=== PATIENT | female | born 1995 | race Caucasian/White ===

== ENCOUNTER 2018-05-21 10:06 | Emergency (ER) | payer BC, OTHER ==
--- NOTE | 2018-05-21 10:15 | EDM.PDOC ---
ED HPI GENERAL MEDICAL PROBLEM - General Chief Complaint: Skin Complaint Stated Complaint: SKIN COND. Time Seen by Provider: 05/21/18 10:08 Source of Information: Reports: Patient History Limitations: Reports: No Limitations - History of Present Illness INITIAL COMMENTS - FREE TEXT/NARRATIVE: HISTORY AND PHYSICAL: History of present illness: Patient is a 23-year-old female who presents to the emergency room with complaints of eczema flare up. She states she has had eczema since she was a young child and usually takes oral and/or topical steroids throughout her young adult life. She states she moved to [place] approximately 4 months ago after delivering her baby. She since has stopped using the topical steroids as she is concerned this was contraindicated with breast-feeding and physically touching the child. She has not seen a manager administration for further refills. She recently did see an Housing Development Specialist and [facility] for further investigation. Reports they were unable to pinpoint any particular allergen that was contributing to her eczema. She is here today requesting oral and/or topical steroids to help alleviate the discomfort. She has been using topical emollient creams without any relief. Review of systems: As per history of present illness and below otherwise all systems reviewed and negative. Past medical history: As per history of present illness and as reviewed below otherwise noncontributory. Surgical history: As per history of present illness and as reviewed below otherwise noncontributory. Social history: See social history for further information Family history: As per history of present illness and as reviewed below otherwise noncontributory. Physical exam: General: Well-developed and well-nourished 23-year-old female. Alert and oriented. Nontoxic appearing and in no acute distress. HEENT: Atraumatic, normocephalic, pupils equal and reactive bilaterally, negative for conjunctival pallor or scleral icterus, mucous membranes moist, TMs normal bilaterally, throat clear, neck supple, nontender, trachea midline. No drooling or trismus noted. No meningeal signs. No hot potato voice noted. Lungs: Clear to auscultation, breath sounds equal bilaterally, chest nontender. Heart: S1S2, regular rate and rhythm without overt murmur Abdomen: Soft, nondistended, nontender. Negative for masses or hepatosplenomegaly. Negative for costovertebral tenderness. Pelvis: Stable nontender. Genitourinary: Deferred. Rectal: Deferred. Skin: Patient does have eczema which appears sporadically throughout the body. Skin is intact, warm, dry. No lesions noted. Extremities: Atraumatic, negative for cords or calf pain. Neurovascular unremarkable. Neuro: Awake, alert, oriented. Cranial nerves II through XII unremarkable. Cerebellum unremarkable. Motor and sensory unremarkable throughout. Exam nonfocal. Notes: Patient has had an official diagnosis of eczema through her manager administration. States that there is nothing new with today's skin appearance, other than she can tell she hasn't been able to use the topical steroids. Patient does appear slightly uncomfortable as she is itching at the eczema on her arms. She states she is frustrated as she cannot find relief with the topical emollient cream. Although the skin does appear to have a large amount of eczema and does not appear toxic or infectious. We discussed the need for appropriate follow-up with a primary care provider since she is now living here and [place] along with specialty care such as dermatology. I did give her phone numbers for both services. Patient and her are malcontent as a request that she be admitted to have further management of her discomfort. As she has not used any topical or oral steroids, I inform them this needs to be in a stepwise fashion and attempt this first prior to going to more severe measures such as admission. I will give her some Westcort topical cream along with Solu-Medrol/Toradol IM while here. Supportive care measures were reviewed and discussed. Voices understanding and is agreeable to plan of care. Denies any further questions or concerns at this time. Diagnostics: None Therapeutics: SoluMedrol and Toradol IM Prescription: Westcort Topical Medrol Dosepak Impression: Eczema Plan: 1. Please continue with topical barrier/emollient cream as a part of your routine regiment 2. Sparingly use the topical ointment that has been prescribed to you. Please avoid the face area 3. Please follow-up with the manager administration as we discussed. See your primary care provider in the next 1-2 days. Return to the ED as needed and as discussed. Definitive disposition and diagnosis as appropriate pending reevaluation and review of above. Duration: Chronic skin Pain Score (Numeric/FACES): 10 - Related Data Allergies Allergy/AdvReac Type Severity Reaction Status Date / Time No Known Allergies Allergy Verified 05/21/18 10:15 Home Meds: Home Meds . [No Known Home Meds] 05/21/18 [History] ED ROS GENERAL - Review of Systems Review Of Systems: ROS reveals no pertinent complaints other than HPI. ED EXAM, SKIN/RASH Exam: See Below (See dictation) Course - Vital Signs Last Recorded V/S: Last Vital Signs Temp 95.7 F 05/21/18 10:16 Pulse 91 05/21/18 10:16 Resp 18 05/21/18 10:16 BP 114/79 05/21/18 10:16 Pulse Ox 99 05/21/18 10:16 - Orders/Labs/Meds Meds: Medications Discontinued Medications Generic Name Dose Route Start Last Admin Trade Name Freq PRN Reason Stop Dose Admin Ketorolac Tromethamine 60 mg 05/21/18 10:49 05/21/18 10:55 Toradol IM 05/21/18 10:50 60 mg ONETIME ONE Administration Ketorolac Tromethamine Confirm 05/21/18 10:49 Toradol Administered 05/21/18 10:50 Dose 60 mg .ROUTE .STK-MED ONE Methylprednisolone Sodium Succinate 125 mg 05/21/18 10:41 05/21/18 10:55 Solu-Medrol IM 05/21/18 10:42 125 mg ONETIME ONE Administration Departure - Departure Time of Disposition: 10:47 Disposition: Home, Self-Care 01 Clinical Impression: Eczema - Discharge Information Instructions: Eczema Referrals: PCP,Unknown [Primary Care Provider] - Forms: ED Department Discharge Additional Instructions: The following information is given to patients seen in the emergency department who are being discharged to home. This information is to outline your options for follow-up care. We provide all patients seen in our emergency department with a follow-up referral. The need for follow-up, as well as the timing and circumstances, are variable depending upon the specifics of your emergency department visit. If you don't have a primary care physician on staff, we will provide you with a referral. We always advise you to contact your personal physician following an emergency department visit to inform them of the circumstance of the visit and for follow-up with them and/or the need for any referrals to a consulting specialist. The emergency department will also refer you to a specialist when appropriate. This referral assures that you have the opportunity for follow-up care with a specialist. All of these measure are taken in an effort to provide you with optimal care, which includes your follow-up. Under all circumstances we always encourage you to contact your private physician who remains a resource for coordinating your care. When calling for follow-up care, please make the office aware that this follow-up is from your recent emergency room visit. If for any reason you are refused follow-up, please contact the [facility] Emergency Department at and asked to speak to the emergency department charge nurse. [facility] [address] [place] [id number] [facility] [phone] 1. Please continue with topical barrier/emollient cream as a part of your routine regiment 2. Sparingly use the topical ointment that has been prescribed to you. Please avoid the face area 3. Please follow-up with the manager administration as we discussed. See your primary care provider in the next 1-2 days. Return to the ED as needed and as discussed.
[2018-05-21] MEDS ORDERED: methylPREDNISolone Sodium Succinate 125 MG/2 ML SDV IM ONE (10:41)
[2018-05-21] MEDS ORDERED: Ketorolac 60 MG/2 ML SDV IM ONE (10:49)
[2018-05-21] MEDS ORDERED: Ketorolac 60 MG/2 ML SDV ONE (10:49)
== END 2018-05-21 11:20 | disposition home or self-care (01) ==
LOC: MW.ED 10:06
DX: L30.9 Dermatitis, unspecified (principal)
CPT/HCPCS: 96372; 99283; J1885; J2930

== ENCOUNTER 2024-04-03 09:55 | Inpatient (IN) | payer BC ==
[2024-04-03] MEDS ORDERED: Sodium Chloride 0.9% 20 ML SDV IV PRN (10:23)
[2024-04-03] MEDS ORDERED: Lidocaine 1% 50 ML MDV INJECT PRN (10:23)
[2024-04-03] MEDS ORDERED: Butorphanol 2 MG/ML SDV IVPUSH PRN (10:23)
[2024-04-03] MEDS ORDERED: Sodium Chloride 0.9% 2.5 ML Syringe FLUSH PRN (10:23)
[2024-04-03] MEDS ORDERED: Misoprostol 200 MCG Tab PO PRN (10:23)
[2024-04-03] MEDS ORDERED: Sodium Chloride 0.9% 10 ML Syringe FLUSH PRN (10:23)
[2024-04-03] MEDS ORDERED: Carboprost Tromethamine 250 MCG/1 mL Vial IM PRN (10:23)
[2024-04-03] MEDS ORDERED: Tranexamic Acid in NACL,ISO-OS 1,000 MG in Premix Bag 1 BAG IV PRN (10:23)
[2024-04-03] MEDS ORDERED: Water For Irrigation,Sterile 1,000 ML Container IRR PRN (10:23)
[2024-04-03] MEDS ORDERED: Methylergonovine 0.2 MG/1 ML Amp IM PRN (10:23)
[2024-04-03] MEDS ORDERED: Oxytocin/0.9 % Sodium Chloride 30 UNIT/500 ML BAG IV SCH (10:30)
[2024-04-03] MEDS ORDERED: Lactated Ringers 1,000 ML IV SCH (10:30)
[2024-04-03] MEDS: Oxytocin/0.9 % Sodium Chloride 30 UNIT/500 ML BAG ONE (10:33)
[2024-04-03] MEDS ORDERED: Phenylephrine HCl In 0.9% NaCl 1 MG/10 ML Syringe IVPUSH PRN (11:00)
[2024-04-03] MEDS ORDERED: Ropivacaine HCl/PF 400 MG in Premix Bag 1 BAG EPIDUR SCH (11:00)
[2024-04-03] MEDS ORDERED: ePHEDrine 50 MG/ML SDV IVPUSH PRN (11:00)
[2024-04-03] MEDS ORDERED: dexmedeTOMIDine HCl 200 MCG/2 ML SDV EPIDUR SCH (11:00)
[2024-04-03 11:12] LABS: HEMATOCRIT 38.3 % (37.0-47.0); HEMOGLOBIN 13.6 g/dL (12.0-16.0); MEAN CORPUSCULAR HEMOGLOBIN 29.8 pg (28.0-32.0); MEAN CORPUSCULAR HGB CONC 35.5 g/dL (32.0-36.0); MEAN CORPUSCULAR VOLUME 83.8 fL (83.0-99.0); MEAN PLATELET VOLUME 11.2 fL (9.4-12.3); PLATELET COUNT,PLT 196 K/uL (150-400); RED BLOOD CELL COUNT 4.57 M/uL (4.10-5.30); WHITE BLOOD CELL COUNT,WBC 11.09 K/uL (3.9-11.3)
[2024-04-03] MEDS: Lanolin 100% Cream 7 GM Tube TOP PRN (12:55)
[2024-04-03] MEDS: Acetaminophen 500 MG Tab PO PRN (12:56)
[2024-04-03] MEDS: Benzocaine/Menthol 20%-0.5% Spray 78 GM Cannister TOP PRN (12:56)
[2024-04-03] MEDS: Ibuprofen 800 MG Tab PO PRN ×2 (12:56→20:12)
[2024-04-03] MEDS: Docusate Sodium 100 MG Cap PO PRN (12:57)
[2024-04-03] MEDS: Witch Hazel Medicated Pads 40/Jar TOP PRN (12:57)
[2024-04-03] MEDS ORDERED: Benzocaine/Menthol 20%-0.5% Spray 78 GM Cannister TOP PRN (14:56)
[2024-04-03] MEDS ORDERED: Docusate Sodium 100 MG Cap PO PRN (14:56)
[2024-04-03] MEDS ORDERED: Lanolin 100% Cream 7 GM Tube TOP PRN (14:56)
[2024-04-03] MEDS ORDERED: Witch Hazel Medicated Pads 40/Jar TOP PRN (14:56)
[2024-04-03] MEDS ORDERED: Acetaminophen 500 MG Tab PO PRN (14:56)
[2024-04-03 19:00] LABS: PH,UMBILICAL ARTERIAL 7.321 (7.18-7.38); PH,UMBILICAL VENOUS 7.335 (7.25-7.45)
[2024-04-04 06:28] LABS: HEMATOCRIT 37.7 % (37.0-47.0); HEMOGLOBIN 12.5 g/dL (12.0-16.0)
[2024-04-05] MEDS ORDERED: Levothyroxine 125 MCG Tab PO SCH (07:30)
== END 2024-04-04 15:15 | disposition home or self-care (01) | DRG 560 ==
LOC: MW.OBCHECK 09:55 → MW.OB 09:55 → MW.OBCHECK 10:25 → OBSVTOIN 11:51 → MW.OB 15:08
PROVIDERS: ADMIT Obstetrics & Gynecology Gynecology; ATTEND Obstetrics & Gynecology Obstetrics
PROC: 10E0XZZ Delivery of Products of Conception, External Approach (ICD-10-PCS; principal; 2024-04-03)
DX: O62.3 Precipitate labor (principal); Z37.0 Single live birth
CPT/HCPCS: 36415; 59025; 59409; 82803; 85014; 85018; 85027; 86592; 86850; 86900; 86901; A9270-GY; J2590